=== PATIENT | male | born 1930 | race Caucasian/White ===

== ENCOUNTER 2017-09-23 16:57 | Inpatient (IN) | payer MEDICARE ==
[~2017-09-23] VITALS: Ht 172.7 cm; Wt 67.6 kg
[2017-09-23 16:58] VITALS: BP 230/66
[2017-09-23] MEDS ORDERED: CENTRUM SILVER1 EAC2 PO (17:04)
[2017-09-23] MEDS ORDERED: PRAVACHOL80 MG PO (17:05)
[2017-09-23] MEDS ORDERED: ATENOLOL-CHLOR1 EACH PO (17:05)
[2017-09-23] MEDS ORDERED: ZYRTEC 10 MG TA10 MG PO (17:06)
[2017-09-23] MEDS ORDERED: MUCUS RELIEF400 MG PO (17:06)
[2017-09-23] MEDS ORDERED: METFORMIN HCL500 MG PO (17:07)
[2017-09-23] MEDS ORDERED: APAP650 PO (17:07)
[2017-09-23] MEDS ORDERED: ASPIR 8181 MG PO (17:07)
[2017-09-23 17:53] LABS: URINE BILIRUBIN NEGATIVE (Negative); URINE BLOOD 3+ (Negative); URINE CLARITY CLEAR; URINE COLOR YELLOW; URINE GLUCOSE-RANDOM 2+ (Negative); URINE KETONES NEGATIVE (Negative); URINE LEUKOCYTES-REFLEX NEGATIVE (Negative); URINE NITRITE-REFLEX NEGATIVE (Negative); URINE PROTEIN 3+ (Negative); URINE SPECIFIC GRAVITY 1.025 (1.005-1.030); URINE UROBILINOGEN 0.2 E.U./dl (0.2-1.0)
[2017-09-23 18:01] LABS: HEMATOCRIT 36.4 % (42.0-52.0); HEMOGLOBIN 12.3 gm/dL (14.0-18.0); MCH 31.3 pg (26.0-34.0); MCHC 33.9 g/dL (28.0-37.0); MCV 92.4 fL (80.0-100.0); MPV 8.3 fl. (7.2-11.1); NUCLEATED RBCS 0 /100WBC; PLATELET COUNT* 182 thou/uL (150-400); RBC 3.94 mil/uL (4.50-6.00); RDW-CV 13.3 % (10.5-14.5); WBC 9.9 thou/uL (4.0-11.0)
[2017-09-23 18:10] LABS: HYALINE CASTS 4-10 Moderate /LPF (None Seen); URINE RBC >20 Many /HPF (0-2)
[2017-09-23 18:11] LABS: AMORPHOUS URATES Few /LPF (None Seen); BACTERIA-REFLEX 1-9 Few /HPF (None Seen); MUCUS None Seen strn/LPF (None Seen); SQUAMOUS NONE SEEN /LPF (0-3)
[2017-09-23 18:12] LABS: URINE WBC-REFLEX 0-5 Rare /HPF (0-5)
[2017-09-23 18:13] LABS: CALCIUM 9.3 mg/dL (8.5-10.1); CREATININE 2.5 mg/dL (0.6-1.3); POTASSIUM 3.8 mmol/L (3.5-5.1)
[2017-09-23 18:17] LABS: ALBUMIN 3.1 g/dL (3.4-5.0); MAGNESIUM 1.8 mg/dL (1.8-2.4); TOTAL BILIRUBIN 0.4 mg/dL (<0.1-1.0); TOTAL PROTEIN 6.7 g/dL (6.4-8.2)
[2017-09-23 18:18] LABS: PCO2 34.6 mmHg (35.0-45.0)
[2017-09-23 18:22] LABS: BE -1.3 mmol/L (-2 to +3); HCO3 22.5 mmol/L (22.0-26.0); PO2 63.8 mmHg (75.0-100.0); pH 7.431 (7.340-7.450)
[2017-09-23 18:25] LABS: ABSOLUTE LYMPHOCYTES 1.4 thou/uL (0.8-5.3); ABSOLUTE MONOCYTES 0.9 thou/uL (0.0-1.2); ABSOLUTE NEUTROPHILS 7.6 thou/uL (1.6-8.1)
[2017-09-23 18:26] LABS: PLATELET ESTIMATE ADEQUATE
[2017-09-23 20:34] VITALS: BP 179/49
[2017-09-23 23:56] VITALS: BP 186/81
[2017-09-24 03:55] VITALS: BP 184/72
[2017-09-24 05:34] LABS: CALCIUM 9.3 mg/dL (8.5-10.1); CREATININE 2.3 mg/dL (0.6-1.3); POTASSIUM 3.5 mmol/L (3.5-5.1)
--- NOTE | 2017-09-24 05:47 | NUR ---
PT ADMITTED FROM ER. HISTORY AND ASSESSMENT COMPLETED WITH FAMILY ASSISTANCE. PT VERY CONFUSED. REQUIRES FREQUENT REDIRECTION. NEW IV ACCESS AFTER PT REMOVED PREVIOUS ONE. PT INCONT OF URINE OVERNIGHT. ALSO INCONT AT HOME. PT NPO PENDING SWALLOW STUDY. DENIES PAIN. CALL LIGHT IN REACH. BED IN LOWEST POSITION. SLOW TO PROGRESS TOWADS GOALS.
[2017-09-24 08:00] VITALS: BP 197/78
--- NOTE | 2017-09-24 08:00 | NUR ---
CHANGE OF SHIFT BEDSIDE REPORT GIVEN ASSUMED PATIENT CARE PATIENT SEEN AT BEDSIDE, ASLEEP BED ALARM SET
--- NOTE | 2017-09-24 10:10 | EKG ---
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 : 1930 Requested By: Monica Haddad Order Number: [id number] MD: Lakhwinder Cameron Measurements Intervals [place] Rate: 68 P: -40 DE: 154 QRS: -52 QRSD: 129 T: 116 QT: 414 QTc: 441 Interpretive Statements atrial fibrillation left axis consider old anterior VA nonspecific t wave changes Baseline wander in lead(s) V3 No previous ECG available for comparison Electronically Signed On 09-24-2017 10:10:33 CDT by Lakhwinder Cameron [email or web address] <ELECTRONICALLY SIGNED> By: Lakhwinder Cameron MD, [facility] 09/24/17 1010 1743 1743 Lakhwinder Camreon MD, [facility] /EPI
--- NOTE | 2017-09-24 10:25 | NUR ---
CM ASSESSMENT: Pt asleep, spoke with via phone. Pt normally resides at home with his . Pt has had increased forgetfulness over the past few months. Pt uses a cane for mobility. Pt has also had increased falls over the past few months, states that they normally occur when Pt is getting up at night. Pt is independent with bathing and grooming, but stands by to supervise. Pt has a shower chair. No hx of HH or SNF. Supportive children that are involved in POC. wants Pt to return home at ne. Following
[2017-09-24 11:20] VITALS: BP 183/64
[2017-09-24 15:19] VITALS: BP 181/70
[2017-09-24 21:00] VITALS: BP 175/65
[2017-09-24 23:51] VITALS: BP 183/58
[2017-09-25 04:00] VITALS: BP 215/105
[2017-09-25 04:55] LABS: CALCIUM 8.6 mg/dL (8.5-10.1); CREATININE 2.4 mg/dL (0.6-1.3); POTASSIUM 3.8 mmol/L (3.5-5.1)
--- NOTE | 2017-09-25 05:59 | NUR ---
PATIENT ALERT AND ORIENTED TO SELF, HISTORY OF DEMENTIA. ELEVATED BLOOD PRESSURE PHYSICIAN NOTIFIED TWICE. FIRST HYDRALAZINE PRN WAS ORDERED AND LATER THIS MORNING A CLONIDINE PATCH WAS ORDERED. PATCH APPLIED BEHIND RIGHT SHOULDER, NURSING WILL MONITOR EFFECTIVENESS. INCONTIENT OF URINE. REPOSITIONED EVERY TWO HOURS. FLUIDS INFUSING PER ORDER. SINUS RHYTHM WITH BUNDLE BRANCH BLOCK ON OVAL OR CIRCULAR GLASS CUTTER. PATIENT DENIES PAIN. TRIED TO CLIMB OUT THE BED ONCE AND PULLED OFF LEADS SEVERAL TIMES DURING THE NIGHT. EASY TO REORIENT. BED ALARM IN USE. FREQUENT ROUNDS. NURSING WILL CONTINUE TO MONITOR.
[2017-09-25 08:02] VITALS: BP 205/97
--- NOTE | 2017-09-25 10:22 | NUR ---
Discussed HH v SNF with and dtr, plan is for Pt to return home with HH. Following.
[2017-09-25 12:00] VITALS: BP 103/88
[2017-09-25 16:47] VITALS: BP 214/49
--- NOTE | 2017-09-25 18:43 | NUR ---
ASSUMED CARE OF PT AT 0730. PT CONTINUES TO BE A&O TO SELF AND PLACE. PT HAS HAD NO C/O PAIN OR DISTRESS TODAY, HE HAS BEEN TRACING SR ON THE MONITOR TO DAY. PT HAS BEEN CONT OF B&B TODAY AND AMBULATING TO THE BATHROOM WITH 1 ASSIST, WALKER AND GAIT BELT. PT GIVEN A BED BATH TODAY REQUESTED BY FAMILY. MEDICATIONS ADMINISTERED PER AUG. PT HAS HAD INCREASED BP TODAY AND DR YEPEZ HAS BEEN MADE AWARE. PT WAS GIVEN AN EXTRA DOSE OF HIS BETA DA, AND A PRN IV HYDRALAZINE DOSE WELL INCREASING HIS CLONIDINE PATCH. HOURLY ROUNDING COMPLETED FOR COMFORT AND SAFTEY. NURSING WILL CONTINUE TO MONITOR.
[2017-09-26] VITALS (7 sets, daily range): BP systolic 167–180; BP diastolic 69–82
--- NOTE | 2017-09-26 04:41 | NUR ---
RECIEVED REPORT AND ASSUMED CARE OF PATIENT AT 1930. COMPUTATIONAL SCIENTIST IN PLACE TRACING SR, BBB. ASSESSMENT AND VITALS COMPLETED CHARTED, VSS. BLOOD PRESSURE HAS IMPROVED THIS SHIFT COMPARED TO PREVIOUS SHIFT, ALTHOUGH BP IS STILL SLIGHTLY ELEVATED. REFER TO CHARTING. PATIENT A&OX1. PATIENT IMPULSIVE AT TIMES, PULLING OFF GOWN AND TAMPERING WITH IV. ATTEMPTED TO REORIENT PATIENT NUMEROUS TIMES. FALL PRECAUTIONS IN PLACE. HOURLY ROUNDING OBSERVED. CALL LIGHT WITHIN REACH
[2017-09-26 05:45] LABS: HEMATOCRIT 31.2 % (42.0-52.0); HEMOGLOBIN 10.6 gm/dL (14.0-18.0); MCH 30.9 pg (26.0-34.0); MCHC 33.9 g/dL (28.0-37.0); MCV 91.3 fL (80.0-100.0); MPV 8.9 fl. (7.2-11.1); RBC 3.42 mil/uL (4.50-6.00); RDW-CV 12.8 % (10.5-14.5)
[2017-09-26 06:02] LABS: ALBUMIN 2.4 g/dL (3.4-5.0); CALCIUM 8.6 mg/dL (8.5-10.1); CREATININE 2.5 mg/dL (0.6-1.3); MAGNESIUM 1.8 mg/dL (1.8-2.4); POTASSIUM 3.8 mmol/L (3.5-5.1); TOTAL BILIRUBIN 0.2 mg/dL (<0.1-1.0); TOTAL PROTEIN 5.6 g/dL (6.4-8.2)
[2017-09-26] MEDS ORDERED: LEVAQUIN 250 M250 MG PO (09:22)
[2017-09-26] MEDS ORDERED: CATAPRES-TTS 20.2 MG TRANSDERM (09:22)
[2017-09-26] MEDS ORDERED: ATENOLOL 50MG T50 M1 PO (09:22)
[2017-09-26] MEDS ORDERED: PREDNISONE 20 M20 M1 PO (09:22)
[2017-09-26] MEDS ORDERED: DUONEB 2.5-0.5 M3 ML INH (09:29)
--- NOTE | 2017-09-26 12:50 | NUR ---
CM SPOKE TO THE PATIENT, SPOUSE, AND DTR TO DISCUSS DISCHARGE PLANNING NEEDS AND CHOICE OF HH. PATIENTS SPOUSE INFORMS THAT SHE WOULD LIKE TO USE [facility] FOR HH. CM CONTACTED [facility] TO INFORM OF THE REFERRAL AND FAXED PATIENTS FACESHEET, H&P, AND D/C ORDERS. CM WILL REMAIN AVAILABLE TO ASSIST AND FOLLOW NEEDED.
--- NOTE | 2017-09-26 13:23 | NUR ---
PT DISCHARGED HOME WITH HOME HEALTH SERVICES, VSS ON ROOM AIR, NO C/O PAIN OR DISTRESS. SKIN WARM, DRY AND INTACT. PT AND VERBALIZED UNDERSTANDING OF DC INSTRUCTIONS THAT INCLUDED MEDICATION TEACHING AND FOLLOW UP CARE. IV AND AUTOMOBILE SERVICE STATION MANAGER REMOVED, ALL PERSONAL BELONGINGS AND ALL PRESCRIPTIONS TAKEN AT TIME OF DISCHARGE.
--- NOTE | 2017-09-26 23:53 | H ---
[address] [address] HISTORY AND PHYSICAL Name: ZEN CASTRO Room: [address] IN M.R.#: [id number] Admission: 09/23/17 Attend Phys: Carlos Poe Discharge: 09/26/17 Date of : 30 Report #: [id number] THIS REPORT FOR: //name// CC: Laurel Harden DATE OF SERVICE: 09/23/2017 CHIEF COMPLAINT: Confusion. HISTORY OF PRESENT ILLNESS: The patient is an 87-year-old gentleman who lives with the family who has history of dementia, who presented to us here for confusion. The patient was brought in by the family as having more altered mental status than usual; however, when got here he is alert and oriented x 1. He apparently bartlett for about 3-4 months. His memory has been getting worse. Family, however, is not at bedside to give me the history as they left, but per ER physician's conversation with them, he has had syncopal episodes and has fallen so they finally brought him in. The patient tells me that he has been coughing for about 2 weeks. He used to smoke before. When I asked him other questions, the patient is more worried about his brother who apparently has been admitted in the hospital here too. He denies any chest pain. He does have some shortness of breath. PAST MEDICAL HISTORY: Includes history of dementia, diabetes, hypertension, lung cancer with lobectomy, and I believe, COPD, and he has history of chronic tobaccoism. PAST SURGICAL HISTORY: The patient is unable to give me history. Family is not at the bedside. FAMILY HISTORY: Unable to obtain from the patient. ALLERGIES: SULFA. HOME MEDICATIONS: Include multivitamins, atenolol, chlorthalidone, pravastatin, guaifenesin, aspirin, metformin, and Tylenol. SOCIAL HISTORY: The patient is and lives with the . He did smoke in the past. Denies any alcohol or drug use. REVIEW OF SYSTEMS: Unable to obtain from the patient, but he does tell me that he has been coughing and some shortness of breath. Denies any chest pain, no nausea, no vomiting, no abdominal pain. A 12-point review of systems is attempted, but unable to obtain completely from the patient because of the confusion. PHYSICAL EXAMINATION: VITAL SIGNS: Temperature is 36.9, heart rate of 68, [place] [address] HISTORY AND PHYSICAL Name: ZEN CASTRO Room: [address]#: [id number] Admission: 09/23/17 Attend Phys: Carlos Poe Discharge: 09/26/17 Date of : 30 Report #: [id number] respiratory rate 11, blood pressure is 179/49, 96% on 2 liters nasal cannula. GENERAL: The patient is alert. He is oriented to name, otherwise he is very forgetful. He is a very poor historian. HEENT: Normocephalic, atraumatic. Nares patent. Clear pharynx. NECK: Supple. No lymphadenopathy. CARDIOVASCULAR: Normal rate, regular rhythm. No murmurs noted. RESPIRATORY: Diffuse wheezing and has some rhonchi on exam, and diminished. GASTROINTESTINAL: Soft, nontender. Good bowel sounds. GENITOURINARY: Deferred. MUSCULOSKELETAL: Moves extremities. NEUROLOGIC: Grossly normal. PSYCHIATRIC: The patient is calm and cooperative. LABORATORY DATA: Reviewed and CBC showed hemoglobin is 12.2, WBC is 9.9, platelets are 182. ABGs, pH 7.43, pCO2 34, pO2 63. Chemistry shows sodium 143, potassium 3.8, chloride 107, bicarbonate 30, BUN is 40, creatinine is 2.5, glucose is 164. Lactic acid 1.2. Urine showed 3+ protein, 3+ blood, otherwise leukocyte negative, WBC 3-5, nitrite negative. IMAGING STUDIES: A chest x-ray showed right thoracotomy changes over hilum, no acute chest process. Head CT was done, which showed diffuse cerebral atrophy with at least moderate chronic deep white matter changes. This includes previous central pontine encephalomalacia. No acute cerebral process. IMPRESSION: 1. The patient is an 87-year-old gentleman, admitted to the hospital for encephalopathy, which has worsened per family. 2. Alzheimer's dementia. 3. Acute chronic obstructive pulmonary disease exacerbation. 4. Known lung cancer with lobectomy. 5. Known hypertension. 6. Known diabetes. 7. Acute renal failure and that might be contributing to the patient's altered mental status. PLAN: The patient will be admitted. The patient is going to be here more than 2 midnights. We will go ahead and treat him for COPD exacerbation with neb treatments, steroids and Levaquin. We will put the patient on sliding scale for his diabetes. We will see how his mental status goes overnight. I will give him fluids. I do not know his baseline creatinine. We will follow labs in the morning. Family, however, is not here to discuss regarding code status, but has been full code in the ER. <ELECTRONICALLY SIGNED> By: Christel Esparza MD 09/26/17 2353 [id number] Esparza MD /EVETTE
--- NOTE | 2017-10-05 08:58 | CON ---
[address] [address] CONSULTATION Name: ZEN CASTRO Room: [address] IN M.R.#: [id number] Admission: 09/23/17 Attend Phys: Carlos Poe Discharge: 09/26/17 Date of : 30 Report #: [id number] THIS REPORT FOR: //name// CC: Laurel Harden DATE OF SERVICE: 09/25/2017 REQUESTING PHYSICIAN: Gomez Harden D.O. REASON FOR CONSULTATION: Acute kidney injury. HISTORY OF PRESENT ILLNESS: The patient is a very pleasant 87-year-old gentleman, admitted to the hospital on 09/23/2017 with a chief complaint of confusion. The patient does have some history of mild dementia, but according to the family he was really confused on 09/23/2017, so they brought him to the hospital. When he was examined in the hospital, his labs were done. His creatinine was 2.5. I do not have the baseline values, not sure whether or not that is acute or it is all chronic. His mental status today is much better. His creatinine stayed about the same. He was admitted with confusion, was given some steroids, Levaquin and was given some fluids. His admitting diagnosis in addition to confusion was COPD exacerbation. His urine was checked and he was positive for protein, blood, few white blood cells, few bacteria, so it is quite possible that he also has urinary tract infection. PAST MEDICAL HISTORY: Significant for: 1. Mild dementia. 2. History of hypertension. 3. History of diabetes mellitus type 2. 4. History of chronic obstructive pulmonary disease. 5. I strongly suspect that he has chronic kidney disease stage either 3 or 4. REVIEW OF SYSTEMS: He was confused on admission, but now feels much better. He is awake, alert, and oriented. He denies any chest pain, shortness of breath, nausea, or vomiting. No changes in visual or hearing acuity. MEDICATIONS: Reviewed. PHYSICAL EXAMINATION: GENERAL: He is awake, [place] [address] CONSULTATION Name: ZEN CASTRO Room: [address] IN [facility].#: [id number] Admission: 09/23/17 Attend Phys: Carlos Poe Discharge: 09/26/17 Date of : 30 Report #: [id number] VITAL SIGNS: Blood pressure is 103/88, but it was as high as 230/66, heart rate 63, respiration rate 18, afebrile. HEENT: Pupils are round. NECK: Supple. LUNGS: Decreased air movement. CARDIOVASCULAR: Regular rate. ABDOMEN: Soft. EXTREMITIES: Lower extremities, trace edema. ASSESSMENT: 1. An 87-year-old gentleman admitted with confusion, most likely due to urinary tract infection and chronic obstructive pulmonary disease exacerbation. His mental status is much better with IV fluids, steroids, and antibiotics. 2. Acute kidney injury versus chronic kidney disease. I strongly suspect chronic kidney disease stage 3 or 4. 3. Diabetes mellitus type 2. 4. Chronic obstructive pulmonary disease. 5. Hypertension. PLAN: His blood pressure was very elevated on admission, but it dropped too low today. Blood pressure 103/88 is quite low for him and that will compromise his flow to his kidneys and to his brain. I would like to keep the blood pressure somewhere around 140-150 systolic and around 80 diastolic. Discussed with the nurses. We have checked his postvoid residual and it was only 140 mL. There is no need for a Mack catheter. Thank you very much for asking my opinion on abnormal renal function of the patient. <ELECTRONICALLY SIGNED> By: Boyd Miller MD 10/05/17 0858 1618 0457Alexmonica Miller MD /[facility]
== END 2017-09-26 13:24 | disposition home health service (06) | DRG 682 ==
LOC: M.ERS 16:57 → M.TBA-ER 18:57 → M.2W 18:57 → EDBD 18:57 → M.2W 20:51
PROVIDERS: Internal Medicine; Personal Emergency Response Attendant; ADMIT Internal Medicine
DX: N17.9 Acute kidney failure, unspecified (principal); G93.40 Encephalopathy, unspecified; J44.1 Chronic obstructive pulmonary disease with (acute) exacerbation; G30.9 Alzheimer's disease, unspecified; I16.0 Hypertensive urgency; N18.9 Chronic kidney disease, unspecified; E11.22 Type 2 diabetes mellitus with diabetic chronic kidney disease; I12.9 Hypertensive chronic kidney disease with stage 1 through stage 4 chronic kidney disease, or unspecified chronic kidney disease; F02.80 Dementia in other diseases classified elsewhere, unspecified severity, without behavioral disturbance, psychotic disturbance, mood disturbance, and anxiety; Z85.118 Personal history of other malignant neoplasm of bronchus and lung; Z79.82 Long term (current) use of aspirin; Z79.84 Long term (current) use of oral hypoglycemic drugs; Z79.899 Other long term (current) drug therapy; Z88.0 Allergy status to penicillin; Z88.2 Allergy status to sulfonamides; N17.1 Acute kidney failure with acute cortical necrosis

== ENCOUNTER 2017-10-30 11:06 | Inpatient (IN) | payer MEDICARE ==
[~2017-10-30] VITALS: Ht 167.6 cm; Wt 69.4 kg
[~2017-10-30 11:06] MED LIST: APAP650 PO; ASPIR 8181 MG PO; ATENOLOL 50MG T50 M1 PO; ATENOLOL-CHLOR1 EACH PO; CATAPRES-TTS 20.2 MG TRANSDERM; CENTRUM SILVER1 EAC2 PO; DUONEB 2.5-0.5 M3 ML INH; LEVAQUIN 250 M250 MG PO; METFORMIN HCL500 MG PO; MUCUS RELIEF400 MG PO; PRAVACHOL80 MG PO; PREDNISONE 20 M20 M1 PO; ZYRTEC 10 MG TA10 MG PO
[2017-10-30 11:17] VITALS: BP 236/92
[2017-10-30 11:46] LABS: ABSOLUTE BASOPHILS 0.1 thou/uL (0.0-0.2); ABSOLUTE EOSINOPHILS 0.1 thou/uL (0.0-0.7); ABSOLUTE LYMPHOCYTES 1.2 thou/uL (0.8-5.3); ABSOLUTE MONOCYTES 0.5 thou/uL (0.0-1.2); ABSOLUTE NEUTROPHILS 3.8 thou/uL (1.6-8.1); BASOPHILS 1.5 %; EOSINOPHILS 1.1 %; HEMATOCRIT 33.7 % (42.0-52.0); HEMOGLOBIN 11.4 gm/dL (14.0-18.0); LYMPHOCYTES 21.6 %; MCHC 33.7 g/dL (28.0-37.0); MCV 91.9 fL (80.0-100.0); MONOCYTES 9.4 %; MPV 7.8 fl. (7.2-11.1); NUCLEATED RBCS 0 /100WBC; PLATELET COUNT* 210 thou/uL (150-400); POLYS 66.4 %; RBC 3.67 mil/uL (4.50-6.00); RDW-CV 13.4 % (10.5-14.5); WBC 5.7 thou/uL (4.0-11.0)
[2017-10-30 11:53] LABS: ANION GAP 4 mmol/L (7-16); BUN 28 mg/dL (7-18); CALCIUM 8.7 mg/dL (8.5-10.1); CHLORIDE 107 mmol/L (98-107); CO2 29 mmol/L (21-32); CREATININE 2.2 mg/dL (0.6-1.3); GLUCOSE 115 mg/dL (70-99); POTASSIUM 4.3 mmol/L (3.5-5.1); SODIUM 140 mmol/L (136-145)
[2017-10-30 12:00] LABS: ALBUMIN 2.9 g/dL (3.4-5.0); ALKALINE PHOSPHATASE 58 U/L (46-116); SGOT 15 U/L (15-37); SGPT 13 U/L (30-65); TOTAL BILIRUBIN 0.4 mg/dL (<0.1-1.0); TOTAL PROTEIN 6.4 g/dL (6.4-8.2); TROPONIN-I LEVEL <0.06 ng/mL (<0.06)
[2017-10-30 13:10] LABS: URINE BILIRUBIN NEGATIVE (Negative); URINE BLOOD NEGATIVE (Negative); URINE CLARITY CLEAR; URINE COLOR STRAW; URINE GLUCOSE-RANDOM NEGATIVE (Negative); URINE KETONES NEGATIVE (Negative); URINE LEUKOCYTES-REFLEX NEGATIVE (Negative); URINE NITRITE-REFLEX NEGATIVE (Negative); URINE PROTEIN 2+ (Negative); URINE SPECIFIC GRAVITY 1.015 (1.005-1.030); URINE UROBILINOGEN 0.2 E.U./dl (0.2-1.0)
[2017-10-30 13:26] LABS: SQUAMOUS 0-3 Few /LPF (0-3)
[2017-10-30 13:27] LABS: BACTERIA-REFLEX None Seen /HPF (None Seen); CASTS None Seen /LPF (None Seen); MUCUS 0-3 Light strn/LPF (None Seen); URINE RBC None Seen /HPF (0-2); URINE WBC-REFLEX None Seen /HPF (0-5)
[2017-10-30 13:35] LABS: CRYSTALS None Seen /LPF (None Seen)
[2017-10-30 15:00] VITALS: BP 206/78
[2017-10-30 15:19] VITALS: BP 208/83
--- NOTE | 2017-10-30 16:59 | EKG ---
[place] [address] ELECTROCARDIOGRAM REPORT Name: ZEN CASTRO Room: [address] ADM IN .R.#: [id number] Admission: 10/30/17 Attend Phys: Trino Francis MD Discharge: Date of : 30 Report #: [id number] THIS REPORT FOR: //name// [facility] ED Test Date: 2017-10-30 Test Time: 11:28:16 Pat Name: ZEN CASTRO Department: Room: Gender: Cofounder: Nava LIU : 1930 Requested By: Monica Ruelas Order Number: [id number] MD: Lakhwinder Cameron Measurements Intervals [place] Rate: 57 P: [place]: QRS: -46 QRSD: 130 T: 114 QT: 462 QTc: 450 Interpretive Statements sinus rhythm with short pr interval left axis anterior infarction nonspecific st changes Compared to ECG 09/23/2017 17:43:47 T-wave abnormality is less prominent Electronically Signed On 10-30-2017 16:58:56 CDT by Lakhwinder Cameron [email or web address] <ELECTRONICALLY SIGNED> By: Lakhwinder Cameron MD, [facility] 10/30/17 1658 1128 1128 Lakhwinder Cameron MD, [facility] /EPI
[2017-10-30 20:00] VITALS: BP 202/68
[2017-10-30 20:15] VITALS: BP 173/87
[2017-10-30 21:28] VITALS: BP 205/76
[2017-10-31] VITALS (7 sets, daily range): BP systolic 174–217; BP diastolic 61–117
[2017-10-31 03:12] LABS: GLYCOHEMOGLOBIN (HGB A1C) 7.2 % (4.8-5.6)
[2017-10-31 04:53] LABS: ABSOLUTE BASOPHILS 0.1 thou/uL (0.0-0.2); ABSOLUTE EOSINOPHILS 0.1 thou/uL (0.0-0.7); ABSOLUTE LYMPHOCYTES 1.2 thou/uL (0.8-5.3); ABSOLUTE MONOCYTES 0.7 thou/uL (0.0-1.2); ABSOLUTE NEUTROPHILS 4.4 thou/uL (1.6-8.1); BASOPHILS 0.9 %; EOSINOPHILS 0.8 %; HEMATOCRIT 31.6 % (42.0-52.0); HEMOGLOBIN 10.9 gm/dL (14.0-18.0); LYMPHOCYTES 18.2 %; MCHC 34.4 g/dL (28.0-37.0); MONOCYTES 10.5 %; MPV 8.1 fl. (7.2-11.1); NUCLEATED RBCS 0 /100WBC; PLATELET COUNT* 190 thou/uL (150-400); POLYS 69.6 %; RBC 3.51 mil/uL (4.50-6.00); RDW-CV 13.6 % (10.5-14.5); WBC 6.3 thou/uL (4.0-11.0)
[2017-10-31 05:08] LABS: CALCIUM 8.5 mg/dL (8.5-10.1); CREATININE 2.1 mg/dL (0.6-1.3)
[2017-11-01 00:17] VITALS: BP 147/123
[2017-11-01 04:16] VITALS: BP 218/74
[2017-11-01 04:18] VITALS: BP 218/74
[2017-11-01 05:05] LABS: ABSOLUTE BASOPHILS 0.1 thou/uL (0.0-0.2); ABSOLUTE LYMPHOCYTES 1.1 thou/uL (0.8-5.3); ABSOLUTE MONOCYTES 0.8 thou/uL (0.0-1.2); ABSOLUTE NEUTROPHILS 7.7 thou/uL (1.6-8.1); BASOPHILS 0.8 %; EOSINOPHILS 0.3 %; HEMATOCRIT 34.8 % (42.0-52.0); HEMOGLOBIN 11.6 gm/dL (14.0-18.0); LYMPHOCYTES 11.2 %; MCH 30.4 pg (26.0-34.0); MCHC 33.4 g/dL (28.0-37.0); MCV 91.1 fL (80.0-100.0); MONOCYTES 8.5 %; MPV 8.4 fl. (7.2-11.1); NUCLEATED RBCS 0 /100WBC; PLATELET COUNT* 214 thou/uL (150-400); POLYS 79.2 %; RBC 3.82 mil/uL (4.50-6.00); RDW-CV 13.8 % (10.5-14.5); WBC 9.8 thou/uL (4.0-11.0)
[2017-11-01 05:20] LABS: ALBUMIN 2.8 g/dL (3.4-5.0); CALCIUM 8.9 mg/dL (8.5-10.1); CREATININE 2.3 mg/dL (0.6-1.3); POTASSIUM 3.6 mmol/L (3.5-5.1); TOTAL BILIRUBIN 0.5 mg/dL (<0.1-1.0); TOTAL PROTEIN 6.2 g/dL (6.4-8.2)
[2017-11-01 08:00] VITALS: BP 218/76
--- NOTE | 2017-11-01 11:36 | EKG ---
[place] [address] ELECTROCARDIOGRAM REPORT Name: CASTRO,EDHIMA Room: [address] ADM IN .R.#: [id number] Admission: 10/30/17 Attend Phys: Trino Francis MD Discharge: Date of : 30 Report #: [id number] THIS REPORT FOR: //name// 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: AP : 1930 Requested By: Trino Francis Order Number: [id number] Reading MD: Lakhwinder Cameron Measurements Intervals [place] Rate: 73 P: 59 MO: 161 QRS: -60 QRSD: 128 T: 104 QT: 432 QTc: 476 Interpretive Statements Sinus rhythm left anterior fasicular block Compared to ECG 10/30/2017 11:28:16 Short MO interval no longer present Electronically Signed On 11-01-2017 11:36:21 CDT by Lakhwinder Cameron [email or web address] <ELECTRONICALLY SIGNED> By: Lakhwinder Cameron MD, [facility] 11/01/17 1136 0205 0205 Lakhwinder Cameron MD, [facility] /EPI
--- NOTE | 2017-11-01 11:39 | EKG ---
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 : 1930 Requested By: Lewis Johnson Order Number: [id number] Antwan MD: Lakhwinder Cameron Measurements Intervals [place] Rate: 63 P: -21 VT: 173 QRS: -55 QRSD: 128 T: 120 QT: 468 QTc: 480 Interpretive Statements Sinus rhythm Atrial premature complexes left anterior fasicular block LVH with secondary repolarization abnormality Anterior infarct, old Electronically Signed On 11-01-2017 11:39:24 CDT by Lakhwinder Cameron [email or web address] <ELECTRONICALLY SIGNED> By: Lakhwinder Cameron MD, [facility] 11/01/17 1139 1002 1002 Lakhwinder Cameron MD, [facility] /EPI
[2017-11-01 14:07] LABS: IgA 205 mg/dL (61-437); IgG 519 mg/dL (700-1600); IgM 98 mg/dL (15-143)
[2017-11-01 16:00] VITALS: BP 162/74
[2017-11-01 20:00] VITALS: BP 167/62
[2017-11-02 00:15] VITALS: BP 170/58
[2017-11-02 04:00] VITALS: BP 172/75
[2017-11-02 05:34] LABS: CALCIUM 8.9 mg/dL (8.5-10.1); CREATININE 2.4 mg/dL (0.6-1.3); MAGNESIUM 1.8 mg/dL (1.8-2.4); POTASSIUM 4.1 mmol/L (3.5-5.1)
[2017-11-02] MEDS ORDERED: BENAZEPRIL HCL20 MG PO (10:19)
[2017-11-02] MEDS ORDERED: CATAPRESS3 TRANSDERM (10:19)
[2017-11-02] MEDS ORDERED: CATAPRES0.2 MG PO (10:19)
[2017-11-02] MEDS ORDERED: NORVASC10 MG PO (10:19)
[2017-11-02 11:38] VITALS: BP 177/72
[2017-11-02 12:05] VITALS: BP 177/72
[2017-11-02 12:18] VITALS: BP 177/72
[2017-11-03 12:09] LABS: KAPPA FREE LIGHT CHAINS 42.3 mg/L (3.3-19.4); LAMBDA FREE LIGHT CHAINS 33.1 mg/L (5.7-26.3)
--- NOTE | 2017-11-04 10:28 | CON ---
[address] [address] CONSULTATION Name: ZEN CASTRO Room: [address] IN M.R.#: [id number] Admission: 10/30/17 Attend Phys: Trino Francis MD Discharge: 11/02/17 Date of : 30 Report #: [id number] THIS REPORT FOR: //name// CC: Trino Mckee DATE OF SERVICE: 10/31/2017 CONSULTING PHYSICIAN: Trino Francis MD REASON FOR NEPHROLOGY CONSULTATION: Elevated creatinine, likely chronic kidney disease and uncontrolled blood pressure. CHIEF COMPLAINT: The patient was asked to come to the hospital because of elevated blood pressure. HISTORY OF PRESENT ILLNESS: This is a very pleasant 87-year-old male who has past medical history of hypertension for many years and according to his , it has recently been not controlled; history of diabetes who was brought into the Emergency Room when his physical therapist asked him to come to the Emergency Room. His physical therapist was at home and checked his blood pressure and was turned out to be very, very high 240 systolic. His blood pressures were 236 systolic when he came into the ED and it has slowly come down to 200 systolic by this morning. The patient had been on clonidine patch, started on clonidine patch just last month when he was at [facility] for hypertension and at that time, his chlorthalidone was stopped. The patient ran out of his clonidine patch and has not had it on since last Friday. According to family with a clonidine patch and since his last hospital discharge, his blood pressure had been controlled. His other medications include atenolol. He is having some mild headache right now, but otherwise is not in any acute discomfort. The patient does not have any history of kidney stones, does report some nocturia, but it is quite chronic for him and does not take any NSAIDs. REVIEW OF SYSTEMS: The patient is having mild headache, otherwise no nausea or vomiting and eats and drinks well. Other review of systems were done and they were negative. ALLERGIES: PENICILLIN AND SULFA. FAMILY HISTORY: Noncontributory in this 87-year-old male. PAST MEDICAL HISTORY: Includes history of hypertension, not controlled; diabetes; lung cancer with lobectomy. PAST SURGICAL HISTORY: Includes [place] [address] CONSULTATION Name: ZEN CASTRO Room: [address]#: [id number] Admission: 10/30/17 Attend Phys: Trino Francis MD Discharge: 11/02/17 Date of : 30 Report #: [id number] SOCIAL HISTORY: He does not use drugs or smoke or use alcohol. Lives with his at home. HOME MEDICATIONS: Include clonidine, atenolol, DuoNeb, aspirin, multivitamin, pravastatin, guaifenesin, cetirizine. He does take metformin 500 mg b.i.d. for his diabetes, acetaminophen. PHYSICAL EXAMINATION: VITAL SIGNS: Blood pressure is 203/117, pulse rate is 63, temperature is 36.7, respiratory rate is 18, pulse ox is 96% on no oxygen. GENERAL: He is awake, alert, oriented. HEAD, EYES, EARS, NOSE, THROAT: Mucous membranes are moist. NECK: There is no JVD. CHEST: Clear to auscultation bilaterally. No crackles or wheezing. CARDIOVASCULAR: S1, S2 normal. No murmurs. ABDOMEN: Soft, nondistended, nontender. Bowel sounds are present. EXTREMITIES: There is no lower extremity edema, symmetrical extremities. NEUROLOGIC: Gross neurological function is intact. PSYCHIATRIC: Mood and affect seems to be normal. LABORATORY DATA: From 10/31/2017 early this morning at 4:11 a.m., hemoglobin is 10.9. Sodium was 143, potassium was 4, creatinine was 2.1 and creatinine was 2.2 yesterday, CO2 is 25 and other labs were reviewed. IMAGING: Chest x-ray and head CT were reviewed. ASSESSMENT AND PLAN: 1. Elevated creatinine. This is likely chronic kidney disease, stage 3, because of a hypertensive nephropathy: It seems like the patient's baseline creatinine is 2.2-2.4. His creatinine is at baseline. His urine is showing some protein and so I have ordered a urine protein to creatinine ratio. I will not be surprised if he has some proteinuria because of uncontrolled hypertension. Chronic kidney disease is also because of uncontrolled hypertension. I have also ordered a serum immunofixation, serum kappa to lambda light chain ratio and I have also ordered a renal ultrasound including a renal Doppler study. Try to monitor his I's and O's. Try to avoid abrupt decline in blood pressure. 2. Uncontrolled hypertension. It seems like the patient has essential hypertension, which is not controlled. For now, I have stopped his Lasix because he is looking euvolemic. I agree he might benefit from chlorthalidone in near future. Rebound hypertension at this time because of lack of clonidine patch. I have decreased his atenolol to 50 mg once a day because of his decreased renal function. Agree with lisinopril 10 mg b.i.d. and closely monitor his creatinine. Goal is to bring his blood pressure down gently to avoid renal hypoperfusion. Low salt diet. [facility] [address] CONSULTATION Name: CASTRO,ZEN Room: [address] IN M.R.#: [id number] Admission: 10/30/17 Attend Phys: Trino Francis MD Discharge: 11/02/17 Date of : 30 Report #: [id number] 3. Diabetes type 2. The patient is on metformin for that. Currently, I agree to keep it on hold and if his creatinine stays stable, we may have to be started as an outpatient, but we may have to stop it altogether if his creatinine worsens any more. Thank you for this consultation. I discussed the patient's plan with Dr. Francis and the patient's family and the patient himself and we will continue to follow along with you. <ELECTRONICALLY SIGNED> By: Spring Hendricks MD 11/04/17 1028 1038 1950Spring Hendricks MD /nt
== END 2017-11-02 12:58 | disposition home health service (06) | DRG 305 ==
LOC: M.ERS 11:06 → M.TBA-ER 13:08 → M.2W 13:08
PROVIDERS: Internal Medicine; Physician Assistant; ADMIT Internal Medicine
DX: I16.0 Hypertensive urgency (principal); E44.0 Moderate protein-calorie malnutrition; I12.9 Hypertensive chronic kidney disease with stage 1 through stage 4 chronic kidney disease, or unspecified chronic kidney disease; N18.3 Chronic kidney disease, stage 3 (moderate); E11.22 Type 2 diabetes mellitus with diabetic chronic kidney disease; R80.9 Proteinuria, unspecified; N28.89 Other specified disorders of kidney and ureter; F03.90 Unspecified dementia, unspecified severity, without behavioral disturbance, psychotic disturbance, mood disturbance, and anxiety; Z88.0 Allergy status to penicillin; Z88.2 Allergy status to sulfonamides; Z85.118 Personal history of other malignant neoplasm of bronchus and lung; Z79.82 Long term (current) use of aspirin; Z79.899 Other long term (current) drug therapy